=== PATIENT | female | born 1995 | race Hispanic/Latino ===

== ENCOUNTER 2022-05-02 22:53 | Inpatient (IN) | payer OTHER ==
[2022-05-02 23:18] VITALS: BMI 42.5
[2022-05-03] MEDS ORDERED: Misoprostol 200 MCG TAB PR PRN (03:41)
[2022-05-03] MEDS ORDERED: Acetaminophen 500 MG TAB PO PRN ×2 (03:41→17:35)
[2022-05-03] MEDS ORDERED: Methylergonovine 0.2 MG/ML VIAL IM PRN ×3 (03:41→15:16)
[2022-05-03] MEDS ORDERED: hydrALAZINE 20 MG/ML VIAL SLOW IVP PRN ×2 (03:41→15:16)
[2022-05-03] MEDS ORDERED: Carboprost 250 MCG/ML AMP IM PRN ×2 (03:41→03:45)
[2022-05-03] MEDS ORDERED: Promethazine HCl 25 MG/ML VIAL IM PRN ×2 (03:41→04:28)
[2022-05-03] MEDS ORDERED: Lidocaine 1% (PF) 30 ML VIAL SC PRN ×2 (03:41→03:45)
[2022-05-03] MEDS ORDERED: Ondansetron PF 4 MG/2 ML Vial IVP PRN ×2 (03:41→04:28)
[2022-05-03] MEDS ORDERED: NS w/ Oxytocin 30 units 500 ML IV SCH ×3 (03:45→15:16)
[2022-05-03] MEDS ORDERED: NS w/ Oxytocin 30 units 500 ML IVPB SCH (03:45)
[2022-05-03] MEDS ORDERED: Penicillin G Potassium 5 MILL.UNITS VIAL ONE (03:45)
[2022-05-03] MEDS ORDERED: Misoprostol 200 MCG TAB RC PRN (03:45)
[2022-05-03 03:46] LABS: Hemoglobin 11.1 g/dL (12.0-15.5); Mean Corpuscular HGB CONC 31.9 g/dL (32.0-36.0); Mean Corpuscular Hemoglobin 25.1 pg (27.0-33.0); Mean Corpuscular Volume 78.6 fl (81.6-98.3); Mean Platelet Volume 11.9 fl (7.4-10.4); Platelet Count 228 10x3/uL (150-450); RBC Distribution Width 16.6 % (11.5-14.5); Red Blood Cell (RBC) Count 4.43 10x6/uL (3.90-5.03); White Blood Cell (WBC) Count 12.1 10x3/uL (3.5-10.5)
[2022-05-03] MEDS ORDERED: Fentanyl 2 mcg/Bup 0.1% Cadd 100 ML ONE (03:46)
[2022-05-03] MEDS ORDERED: Penicillin G Potassium 5 MILL.UNITS in Sodium Chloride 0.9% 100 ML IVPB SCH (04:00)
[2022-05-03] MEDS ORDERED: Acetaminophen 325 MG TAB PO PRN (04:28)
[2022-05-03] MEDS ORDERED: Lactated Ringer's 500 ML IV PRN (04:28)
[2022-05-03] MEDS ORDERED: diphenhydrAMINE 50 MG/ML VIAL IVP PRN (04:28)
[2022-05-03] MEDS ORDERED: Naloxone HCl 0.4 mg/ml Vial IVP PRN ×2 (04:28)
[2022-05-03] MEDS ORDERED: Moisturizing Cream (Eucerin) 113 GM JAR TOP PRN (04:28)
[2022-05-03] MEDS ORDERED: ePHEDrine Sulfate 50 MG/10 ML VIAL SLOW IVP PRN (04:28)
[2022-05-03 04:29] LABS: Syphilis Antibody Nonreactive (Nonreactive); Syphilis Antibody Index 0.03 S/CO (<1.00 Non-Reactive)
[2022-05-03 04:30] LABS: HBSAg Index 0.14 S/CO (0-0.99); Hep B Surf Ag Non-Reactive S/CO (NonReactive)
[2022-05-03] MEDS ORDERED: Communication Order-Pharmacy FS SCH (04:30)
[2022-05-03] MEDS ORDERED: Fentanyl 2 mcg/Bupivacaine 0.1% Cassette 100 ML EPIDURAL SCH (04:30)
[2022-05-03 04:37] LABS: SARS-CoV-2 NAA Rapid Test Not Detected (NotDetected)
[2022-05-03] MEDS ORDERED: Dexmedetomidine 200 MCG/2 ML VIAL ONE (06:52)
[2022-05-03] MEDS: Penicillin G 2.5 MILL.units 2.5 MILL.UNITS in Premix Bag 1 BAG IVPB SCH (07:32)
[2022-05-03] MEDS ORDERED: Milk Of Magnesia 30 ML UDCUP PO PRN (15:16)
[2022-05-03] MEDS ORDERED: Bisacodyl 10 MG SUPP PR PRN (15:16)
[2022-05-03] MEDS ORDERED: Benzocaine-Menthol 82.5 ML CAN TOP PRN (15:16)
[2022-05-03] MEDS ORDERED: Misoprostol 200 MCG TAB VAG PRN (15:16)
[2022-05-03] MEDS ORDERED: HYDROcodone/Acetaminophen 5/325 mg Tablet PO PRN (15:16)
[2022-05-03] MEDS ORDERED: Boostrix 0.5 ML (Tdap) VIAL (>/=7 yrs of age) IM ONE (15:16)
[2022-05-03] MEDS: Ferrous Sulfate 325 MG TAB PO SCH (16:23)
[2022-05-03] MEDS: HYDROcodone/Acetaminophen 5/325 mg Tablet PO PRN ×2 (17:56→22:19)
[2022-05-03] MEDS: Docusate 100 MG CAP PO SCH (20:58)
[2022-05-04] MEDS: Ferrous Sulfate 325 MG TAB PO SCH (07:30)
[2022-05-04] MEDS: Penicillin G 2.5 MILL.units 2.5 MILL.UNITS in Premix Bag 1 BAG IVPB SCH (07:31)
[2022-05-04] MEDS: Docusate 100 MG CAP PO SCH (08:17)
[2022-05-04] MEDS ORDERED: Prenatal Vitamin 1 TAB PO SCH (09:00)
[2022-05-04] MEDS ORDERED: Ibuprofen 800 MG TAB PO PRN (09:10)
[2022-05-04 12:11] VITALS: BP 125/72; TEMP 97.3
== END 2022-05-04 14:40 | disposition home or self-care (01) | DRG 807 ==
LOC: CSHLD/OP 22:53 → CSHLD 05-03 03:05 → CSHPP 05-03 15:36
PROVIDERS: ADMIT Obstetrics & Gynecology; ATTEND Obstetrics & Gynecology
PROC: 10E0XZZ Delivery of Products of Conception, External Approach (ICD-10-PCS; principal; 2022-05-03)
DX: O99.824 Streptococcus B carrier state complicating childbirth (principal); Z37.0 Single live birth; Z3A.39 39 weeks gestation of pregnancy; Z88.6 Allergy status to analgesic agent
CPT/HCPCS: 51702; 85027; 86780; 86850; 86900; 86901; 87340; 99285; J2540; J3490; U0002